=== PATIENT | male | born 1970 | race Caucasian/White ===

== ENCOUNTER 2023-10-19 08:18 | Day surgery (SDC) | payer BC ==
[2023-10-19] MEDS ORDERED: propofoL 50 ML ONE (09:03)
[2023-10-19] MEDS: Lactated Ringers 1,000 ML IV SCH (09:29)
[2023-10-19] MEDS ORDERED: Lactated Ringers 1,000 ML IV SCH (10:15)
== END 2023-10-19 10:50 | disposition home or self-care (01) ==
LOC: MW.SDS 08:18
PROVIDERS: ATTEND Surgery
DX: Z12.11 Encounter for screening for malignant neoplasm of colon (principal); K57.30 Diverticulosis of large intestine without perforation or abscess without bleeding; Z86.16 Personal history of COVID-19; F32.A Depression, unspecified; Z79.899 Other long term (current) drug therapy; F17.290 Nicotine dependence, other tobacco product, uncomplicated
CPT/HCPCS: 45378; J2704; J7120